=== PATIENT | male | born 1970 | race African-American/Black ===

== ENCOUNTER 2022-08-03 11:45 | Emergency (ER) | payer OTHER, SELFPAY ==
[2022-08-03] VITALS (8 sets, daily range): BP systolic 110–137; BP diastolic 69–94; PULSE 63–96; RESP 12–22; TEMP 36.8; O2SAT 100
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
--- NOTE | 2022-08-03 11:52 | ECG_ITS ---
Measurements Intervals [place] Rate: 61 P: 146 CA: 199 QRS: 77 QRSD: 96 T: 107 QT: 412 QTc: 416 Interpretive Statements SINUS RHYTHM LOW QRS VOLTAGE IN EXTREMITY LEADS [QRS DEFLECTION < 0.5 mV IN LIMB LEADS] POSSIBLE LATERAL MYOCARDIAL INFARCTION , OF INDETERMINATE AGE [30 ms Q WAVE IN I/aVL/V5/V6] NO PREVIOUS ECG AVAILABLE FOR COMPARISON Electronically Signed On 08-03-2022 16:27:15 CDT by Keturah Diaz M.D.
[2022-08-03] MEDS: SODIUM CHLORIDE 0.9% IV 1,000 ML 999 ML IV CONT (12:29)
[2022-08-03 12:58] LABS: Alanine Aminotransferase 15 U/L (6-50); Albumin Level 3.9 g/dL (3.5-5.1); Alkaline Phosphatase 81 U/L (38-126); Anion Gap 4 mmol/L (8-16); Aspartate Amino Transferase 21 U/L (17-59); Blood Urea Nitrogen 14 mg/dL (9-20); Carbon Dioxide 30 mmol/L (22-30); Chloride 106 mmol/L (98-107); Estimated CRCL calculation 80 ml/min; Estimated Glomerular Filt Rate > 60; Glucose 100 mg/dL (65-110); Sodium 140 mmol/L (137-145)
[2022-08-03 12:59] LABS: Basophils Percent Auto 1.2 % (0.2-1.2); Eosinophils Percent Auto 1.8 % (0-4.4); Hematocrit 35.4 % (42.0-52.0); Hemoglobin 11.4 g/dL (14.0-18.0); Immature Granulocyte Absolute 0.01 K/mm3 (0.00-0.031); Immature Granulocyte Percent A 0.6 % (0-0.5); Lymphocytes Percent Auto 30.3 % (18.3-44.2); Mean Corpuscular HGB Conc 32.2 g/dl (32-36); Mean Corpuscular Hemoglobin 28.9 pg (26-34); Mean Corpuscular Volume 89.8 fl (80-100); Monocytes Absolute Auto 0.2 K/mm3 (0.1-0.6); Monocytes Percent Auto 9.1 % (2.6-8.5); Neutrophils Absolute Auto 0.9 K/mm3 (1.3-6.7); Platelet Count Result 174 k/mm3 (150-375); Red Blood Count 3.94 M/mm3 (4.6-6.20); Red Cell Distribution Width 14.4 % (11.5-14.5)
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
[2022-08-03 13:20] LABS: Appearance Urine Clear (Clear); Bilirubin Urine Negative (Negative); Blood Urine Negative (Negative); Color Urine Yellow (Yellow); Glucose Urine UA Negative (Negative); Ketones Urine Negative (Negative); Leukocyte Esterase Ur Negative LEU/UL (Negative); Nitrate Urine Negative (Negative); Protein Urine Negative (Negative); Specific Grav Ur 1.013 (1.001-1.035); Urobilinogen Urine 0.2 mg/dL (<2.0)
[2022-08-03 13:21] LABS: Add Urine Microscopic? NO
[2022-08-03 13:33] LABS: White Blood Count 1.7 K/mm3 (4.5-10.0)
[2022-08-03 13:36] LABS: Platelet Estimate Adequate (Adequate)
[2022-08-03 13:37] LABS: Burr Cells 1+ (NORMAL); Schistocytes None Seen (NORMAL)
[2022-08-03 14:02] LABS: Troponin I < 0.012 ng/mL (0.000-0.034)
--- NOTE | 2022-08-03 15:42 | PC.NURSE ---
Patient ambulatory around nurses station with steady gait and no assist.
[2022-08-03 16:01] LABS: Troponin I < 0.012 ng/mL (0.000-0.034)
== END 2022-08-03 17:00 | disposition home or self-care (01) ==
PROVIDERS: Emergency Provider Emergency Medicine
DX: R55 Syncope and collapse (principal); R94.31 Abnormal electrocardiogram [ECG] [EKG]
CPT/HCPCS: 36415; 70450; 71045; 80053; 81003; 84484; 85025; 93005; 96360; 99284; J7030